=== PATIENT | female | born 1950 | race Caucasian/White ===

== ENCOUNTER 2021-03-19 20:47 | Emergency (ER) | payer MEDICARE, OTHER ==
[2021-03-19] MEDS ORDERED: Tenecteplase 50 MG Kit ONE (20:55)
[2021-03-19] MEDS ORDERED: Tenecteplase 50 MG Kit IV ONE (20:55)
[2021-03-19] MEDS ORDERED: Aspirin 81 MG Tab.Chew PO ONE (21:01)
[2021-03-19] MEDS ORDERED: Ondansetron 4 MG/2 ML SDV IVPUSH PRN (21:01)
[2021-03-19] MEDS ORDERED: Sodium Chloride 0.9% 10 ML Syringe FLUSH PRN (21:04)
[2021-03-19] MEDS ORDERED: Clopidogrel 75 MG Tab PO ONE (21:14)
[2021-03-19] MEDS ORDERED: Heparin Sodium 5,000 Units/ML Vial IVPUSH ONE ×2 (21:15→21:18)
[2021-03-19] MEDS ORDERED: Lactated Ringers 1,000 ML IV ONE (21:27)
[2021-03-19] MEDS ORDERED: Heparin Sodium/D5W 25,000 UNITS/500 ML BAG IV SCH (21:30)
[2021-03-19 21:49] LABS: CORONAVIRUS COVID-19 NAA NEGATIVE (NEGATIVE)
== END 2021-03-19 21:27 ==
LOC: JD.ED 20:47
DX: I21.11 ST elevation (STEMI) myocardial infarction involving right coronary artery (principal); I44.2 Atrioventricular block, complete; Z20.822 Contact with and (suspected) exposure to COVID-19
CPT/HCPCS: 0240U; 36415; 71045; 80053; 84484; 85025; 85610; 85730; 92977; 93005; 96374; 96375; 99285; A9270; J1644; J2405; J3101; J7120; 93010; 99291